=== PATIENT | male | born 1995 | race Two or more races ===

== ENCOUNTER 2020-03-14 13:27 | Emergency (ER) | payer SELFPAY ==
[~2020-03-14] VITALS: Ht 185.4 cm; Wt 96.5 kg
--- NOTE | 2020-03-14 13:42 | NUR ---
Chief complaint of left flank pain for two weeks and increasing SHAW for one month. No neuro deficits
--- NOTE | 2020-03-14 14:20 | NUR ---
TASK RN: PT RESTING ON DARY. NADN. LOWES. UA COLLECTED, LABELED, AND SENT TO LAB.
[2020-03-14 15:11] LABS: BASOPHILS # (AUTO) 0.02 x10^3/uL (0-0.1); BASOPHILS % (AUTO) 0 % (0-1); EOSINOPHILS # (AUTO) 0.15 x10^3/uL (0-0.4); EOSINOPHILS % (AUTO) 3 % (1-7); LYMPHOCYTES # (AUTO) 1.83 x10^3/uL (1-3.4); LYMPHOCYTES % (AUTO) 31 % (22-44); MD NO; MEAN CORPUSCULAR HEMOGLOBIN 29.3 pg (27.5-34.5); MEAN CORPUSCULAR HGB CONC 33.8 g/dL (33.2-36.2); MEAN CORPUSCULAR VOLUME 86.6 fL (81-97); MEAN PLATELET VOLUME 9.3 fL (7.4-10.4); MONOCYTES # (AUTO) 0.38 x10^3/uL (0.2-0.8); MONOCYTES % (AUTO) 6 % (2-9); NEUTROPHILS # (AUTO) 3.56 x10^3/uL (1.8-6.8); NEUTROPHILS % (AUTO) 60 % (42-75); PLATELET COUNT 193 x10^3/uL (130-400); RED BLOOD COUNT 5.74 x10^6/uL (4.38-5.82); RED CELL DISTRIBUTION WIDTH 13.8 % (9.4-14.8)
[2020-03-14 15:11] LABS: MICROSCOPIC NOT IND
[2020-03-14 15:32] LABS: ALANINE AMINOTRANSFERASE 29 U/L (12-78); ALBUMIN 3.9 g/dL (3.4-5.0); ANION GAP 6 mmol/L (5-15); CALCIUM 8.4 mg/dL (8.5-10.1); CHLORIDE 108 mmol/L (98-107)
[2020-03-14 15:35] LABS: ALKALINE PHOSPHATASE 74 U/L (45-117); BILIRUBIN,TOTAL 0.5 mg/dL (0.2-1.0); TOTAL PROTEIN 7.3 g/dL (6.4-8.2)
[2020-03-14 15:38] VITALS: BP 135/64
--- NOTE | 2020-03-14 15:55 | NUR ---
Micah Ramesh at bedside to discuss POC
== END 2020-03-14 16:08 | disposition home or self-care (01) ==
LOC: ED 16:06
DX: S39.011A Strain of muscle, fascia and tendon of abdomen, initial encounter (principal); R51 Headache; R11.0 Nausea; X58.XXXA Exposure to other specified factors, initial encounter; Y93.89 Activity, other specified; Y92.89 Other specified places as the place of occurrence of the external cause; Y99.8 Other external cause status
CPT/HCPCS: 36415; 70450; 74021; 80053; 81003; 83690; 85025; 99285